=== PATIENT | female | born 1950 | race Caucasian/White ===

== ENCOUNTER → 2023-08-07 12:30 | Outpatient (REF) | payer MEDICARE, OTHER, SELFPAY ==
--- NOTE | 2023-07-07 12:58 | CM ---
Patient is scheduled for an elective R THR on 09/04/23. Spoke with patient prior to surgery via telephone. Introduced role of Orthopedic Navigator. Patient reports that she lives with her in a two story home. There are two steps (1-1) to enter
and a flight of steps to the second floor. There is a powder room on the order entry technician. She currently functions independently. She has no DME and has never had VN services. PCP is Dr. Edwin Roca.
Discussed orthopedic program and post surgical plans. Reviewed anticipated length of stay and that goal is for her to return home at discharge. Also reviewed outpatient PT. Patient is in agreement with tentative plan and will go directly to
outpatient PT. She will have support from her when she goes home.
Patient will complete online education.
Plan: Orthopedic Navigator will remain available to assist with the care of patient and will reassess discharge needs after surgery.
[2023-08-07 12:46] VITALS: BMI 33.0
[2023-08-07 13:04] LABS: Hematocrit 35.4 % (37.0-47.0); Hemoglobin 12.6 g/dL (12.0-16.0); Mean Corp Hgb Conc. 35.6 g/dL (33.0-37.0); Mean Corpuscular Hgb 32.8 pg (27.0-31.0); Mean Corpuscular Volume 92.2 fL (81.0-99.0); Mean Platelet Volume 11.6 fL (7.4-10.4); Platelet Count 216 10^3/uL (130-400); Red Blood Cell Count 3.84 10^6/uL (4.20-5.40); Red Cell Dist. Width 12.3 % (11.5-14.5); White Blood Cell Count 7.1 10^3/uL (4.8-10.8)
[2023-08-07 13:16] LABS: ALT (SGPT) 25 U/L (0-35); AST (SGOT) 33 U/L (14-36); Albumin 4.7 g/dl (3.5-5.0); Alkaline Phosphatase 91 U/L (38-126); Blood Urea Nitrogen 19 mg/dl (7-17); Calcium 9.8 mg/dl (8.4-10.2); Carbon Dioxide 25 mmol/L (22-30); Chloride 105 mmol/L (98-107); Estimated Creatinine Clearance 74 ml/min; Glucose 114 mg/dl (70-99); Potassium 3.7 mmol/L (3.5-5.1); Sodium 140 mmol/L (135-145); Total Bilirubin 0.6 mg/dl (0.2-1.3); Total Protein 7.4 g/dl (6.3-8.2); eGFR > 60.00
[2023-08-07 13:20] VITALS: BMI 33.0
[2023-08-08 08:59] LABS: Glycohemoglobin (HgbA1c) 5.8 % (4.0-5.6)
--- NOTE | 2024-04-28 12:54 | W.DCSUMMARY ---
Discharge Summary
Discharge Data
Date of Admission: 12/04/23
Date of Discharge: 12/05/23
-
Pending Results: No
Hospital Course
The patient underwent a right total knee arthroplasty with Dr. Sunny Brown 12/04/2023 without complications. The patient recovered in PACU and was transferred to the floor. The post-operative course remained uncomplicated. At the time of discharge,
the patient was noted to be tolerating a regular diet, ambulating with adherence to weight bearing and activity restrictions, able to accomplish activities of daily living at baseline level, and had pain controlled on oral medications. Prior to
discharge, the patient was provided with appropriate discharge/follow up/return instructions, and discharge medications.
Discharge Plan
-
Stand Alone Forms: Total Hip/Knee Replacement D/C
Referrals:
Physical therapy, outpatient [Other] - 09/08/23
Edwin Roca MD [Family Provider] -
Sunny Brown MD [Active] - in two weeks
Prescriptions:
No Action
amlodipine 5 MG tablet
5 mg PO HS
ibuprofen [Advil] 200 mg Tablet
200 - 400 mg PO Q6H PRN (Reason: pain)
losartan 100 mg Tablet
100 mg PO DAILY
atenolol 25 mg Tablet
25 mg PO DAILY
rosuvastatin 5 mg Tablet
5 mg PO HS
acetaminophen 325 MG tablet
650 mg PO PRN PRN (Reason: Pain)
hydrochlorothiazide 25 MG tablet
25 mg PO DAILY
Discharge Date and Time
Print Language: CITIZEN [place]
== END ==
LOC: REG 12:30
PROVIDERS: ATTENDING PHYSICIAN Orthopaedic Surgery; FAMILY PHYSICIAN Family Medicine; OTHER PHYSICIAN Physician Assistant Medical
DX: M16.11 Unilateral primary osteoarthritis, right hip (principal); Z01.818 Encounter for other preprocedural examination
CPT/HCPCS: 36415; 80053; 83036; 85027; 87070; 93005

== ENCOUNTER 2023-12-04 08:55 | Inpatient (IN) | payer MEDICARE, OTHER, SELFPAY ==
[2023-11-11 14:11] VITALS: BMI 32.5
[2023-11-11 15:01] LABS: Hematocrit 35.8 % (37.0-47.0); Hemoglobin 12.8 g/dL (12.0-16.0); Mean Corp Hgb Conc. 35.8 g/dL (33.0-37.0); Mean Corpuscular Hgb 33.2 pg (27.0-31.0); Mean Platelet Volume 12.1 fL (7.4-10.4); Platelet Count 198 10^3/uL (130-400); Red Blood Cell Count 3.85 10^6/uL (4.20-5.40); Red Cell Dist. Width 12.6 % (11.5-14.5)
[2023-11-11 15:20] LABS: ALT (SGPT) 23 U/L (0-35); AST (SGOT) 30 U/L (14-36); Albumin 4.5 g/dl (3.5-5.0); Alkaline Phosphatase 88 U/L (38-126); Blood Urea Nitrogen 21 mg/dl (7-17); Calcium 9.5 mg/dl (8.4-10.2); Carbon Dioxide 25 mmol/L (22-30); Chloride 105 mmol/L (98-107); Estimated Creatinine Clearance 58 ml/min; Glucose 97 mg/dl (70-99); Potassium 4.1 mmol/L (3.5-5.1); Sodium 139 mmol/L (135-145); Total Bilirubin 0.5 mg/dl (0.2-1.3); Total Protein 7.1 g/dl (6.3-8.2); eGFR > 60.00
[2023-11-12 10:53] LABS: Glycohemoglobin (HgbA1c) 5.7 % (4.0-5.6)
[2023-12-02 09:22] VITALS: BMI 32.5
[2023-12-04] VITALS (12 sets, daily range): BP systolic 108–149; BP diastolic 55–77; PULSE 67; O2SAT 96
[2023-12-04] MEDS: TYLENOL 650 MG PO ×3 (09:27→19:55)
[2023-12-04] MEDS: NORMOSOL-R/PLASMALYTE-A 1000 IV ×2 (09:28→13:25)
[2023-12-04] MEDS: MOBIC 15 MG PO (09:28)
[2023-12-04] MEDS: DILAUDID 0.25 MG IV ×3 (12:46→13:16)
[2023-12-04] MEDS: ROXICODONE 5 MG PO (13:05)
--- NOTE | 2023-12-04 14:20 | PTCARENOTE ---
Pt arrived to 2S in bed. Full assessment completed. R hip mepilex C/D/I. B/l LE neurovascular assessment WDL. Pt meeting acceptable pain level/ declining further pain medication at this time. IVF infusing per order. Bed locked and in the lowest
position, safety maintained. Oriented to room and call hernández.
--- NOTE | 2023-12-04 16:46 | OR.RPT ---
Operative Report
Operative Report
Orthopaedic Surgery Operative Note
DATE OF OPERATION: 12/04/2023
PREOPERATIVE DIAGNOSES: Osteoarthritis, right hip
POSTOPERATIVE DIAGNOSES: Same
OPERATION PERFORMED: Right total hip arthroplasty.
SURGEON: Sunny Brown MD
COMPLIANCE ENGINEER PRODUCTS: Bar Taylor PA-C who assisted with patient positioning and retraction
ANESTHESIA: Spinal
COMPLICATIONS: None.
ESTIMATED BLOOD LOSS: 50 mL.
DRAINS: None
SPECIMEN: None
FINDINGS: Advanced articular cartilage wear on the femoral head and acetabulum.
IMPLANTS:
Linn Trilogy Acetabular Shell, cluster hole, size 42
Linn Trilogy Highly Crosslinked PE Liner, neutral
Linn M/L Taper femoral stem, size 6 with standard neck length and standard offset
Biolox Ceramic Head, size 36mm -3.5
INDICATIONS: The patient presented to my office with debilitating right hip pain due to osteoarthritis. We reviewed the natural history of this problem, as well as the risks, benefits, and alternatives of various treatment options. The patient
exhausted all nonoperative treatment options and wished to proceed with hip replacement surgery. The patient understood the risks which included, but were not limited to, bleeding, infection, failure to relieve pain, more pain than preop, damage to
blood vessels and nerves, need for reoperation, mechanical failure of the implants, wound healing problems, stiffness, instability, blood clot, pulmonary embolism, myocardial infarction, pneumonia, arrhythmia, CVA, and . The patient accepted
these risks and wished to proceed. All questions were answered, and informed consent was obtained.
PROCEDURE IN DETAIL: The patient was identified in the preoperative holding area. The right hip was identified as the operative site. The patient was taken in the operating room and transferred to the operative table. Spinal anesthesia was
performed. IV antibiotics and tranexamic acid were administered. The patient was placed in the lateral position with Stulberg hip positioners. Axillary roll was placed. The down leg was well padded. All bony prominences were well padded. The
operative limb was prepped and draped in the usual sterile fashion.
Time out was performed. A posterolateral approach to the hip was used. The skin incision was centered over the greater trochanter. This was taken down sharply through subcutaneous tissues. Meticulous hemostasis was achieved throughout the case with
electrocautery. We split the fascia jayson in line with skin incision. I split the gluteus you bluntly. We cauterized all crossing vessels as we split it. I palpated the sciatic nerve and made sure it was well posterior in the operative field. It
was protected throughout the case.
I performed a partial bursectomy to identify the short external rotators. The gluteus medius and minimus were identified and retracted anteriorly. I incised the piriformis tendon and conjoint tendon at their insertions. These were tagged for later
repair. I then performed a trapezoidal capsulotomy. The edges were tagged for later repair. I referenced the cut edge of the capsular flap to 2 fixed points on the greater trochanter for assistance with recreation of limb length and offset. I then
dislocated the hip posteriorly. I performed a femoral neck osteotomy approximately 10 mm above the lesser trochanter, as per preoperative templating. The femoral head measured 47 mm in outer diameter. The distance between neck cut and the center of
femoral head was 35mm. I placed a curve hohmann retractor over the anterior lip of the acetabulum between the labrum and the anterior hip capsule. A second retractor was placed inferiorly just distal to the transverse acetabular ligament.
Circumferential view of the acetabulum was achieved. I incised the labrum and pulvinar with electrocautery. I started with a 47 mm reamer and reamed down to the medial wall. I then sequentially reamed up to a 51mm reamer. This gave a nice bed of
bleeding bone with excellent column support anteriorly and posteriorly. I impacted the acetabular shell in approximately 40 degrees of abduction and 20 degrees of anteversion. I matched the anteversion of the transverse acetabular ligament. I also
made sure that the anterior rim of the socket was not proud of the anterior wall to minimize the chance of iliopsoas tendinitis. I confirmed the cup was well-seated. I then impacted a neutral liner and confirmed it was well seated with the locking
mechanism.
On the femoral side, I use a box osteotome to open the proximal starting point. I found the canal with a Charnley awl and a lateralizing reamer. I then used the Linn M/L taper broaches sequentially to prepare the femoral canal. The size 6 came to
a stop at the desired level and had excellent axial and rotational stability. We trialed with a trial ball head. The hip was taken through a complete range of motion. It was noted to be stable in extension without impingement. It was stable in the
position of sleep and in flexion with internal rotation. The limb length and offset were checked compared to the capsular flap and was appropriate. The measured length between the neck cut and center of the trial femoral head was 37.5mm.
I removed the trials. I impacted the femoral implant to match the white earth version. It had excellent axial and rotational stability. Trial ball head was placed, and I reduced the hip and took the hip through range of motion. There was no impingement
in external rotation and extension. Position of sleep was stable. At 90 degrees of flexion and slight adduction, the hip could be internally rotated to 90 degrees with no subluxation. I palpated the sciatic nerve, which was tension free and
unharmed. Based on our capsular flap measurement, we had restored the offset and leg length. The trial ball head was removed, and the final ball head was impacted onto a clean and dry [place] taper. The hip was reduced.
A dilute betadine soak was performed for approximately 3 minutes, and then the hip was copiously irrigated. I repaired the capsule, piraformis, and conjoint tendon with #2 Ethibond to drill holes in the greater trochanter. Local anesthetic was
injected. The fascia jayson was closed with #1 PDS in running fashion. The subcutaneous tissues were closed with 2-0 PDS in running fashion. The skin was reapproximated with 3-0 Monocryl subcuticular suture. I placed a Prineo dressing followed by a
Mepilex Ag dressing. The patient awoke from anesthesia without difficulty. Sponge and instrument counts were correct x2 at the end of the case.
I was present and participated in the entire procedure. The patient was sent to the recovery room in stable condition.
Roberth Brown MD
[2023-12-04] MEDS: ANCEF 5 IV (17:13)
[2023-12-04] MEDS: ASPIRIN 325 MG PO (17:15)
[2023-12-04] MEDS: SENOKOT 17.2 MG PO (19:54)
[2023-12-04] MEDS: COLACE 100 MG PO (19:54)
[2023-12-04] MEDS: TORADOL 15 MG IV (19:55)
[2023-12-04] MEDS: BACTROBAN 2% OINTMENT 1 APPLIC NASAL (19:55)
[2023-12-04] MEDS: NEURONTIN 300 MG PO (22:08)
[2023-12-04] MEDS: CRESTOR 5 MG PO (22:08)
[2023-12-05] MEDS: TYLENOL 650 MG PO ×3 (00:12→10:01)
[2023-12-05] MEDS: ANCEF 5 IV (02:48)
[2023-12-05 03:00] VITALS: BP 117/60
[2023-12-05 07:35] VITALS: BP 130/55
--- NOTE | 2023-12-05 08:24 | W.DCSUMMARY ---
Discharge Summary
Discharge Data
Date of Admission: 12/04/23
Date of Discharge: 12/05/23
-
Pending Results: No
Discharge Plan
-
Patient Disposition: Home (Routine Discharge)
Discharge Diagnosis/Procedures: Right total hip arthroplasty with Dr. Brown
Condition: Good
Diet: No restrictions
Activity: As tolerated and With Walker
Driving Restrictions: Not until seen by your Dr
Bathing Restrictions: OK to Shower
Stand Alone Forms: Total Hip/Knee Replacement D/C
Referrals:
Edwin Roca MD [Family Provider] -
Sunny Brown MD [Active] - (Please call the office to confirm your first postoperative follow-up 2 weeks from date of surgery)
Additional Discharge Medication Instructions: Please continue with your postoperative medications as discussed at the preoperative history and physical
Prescriptions:
Continued
amlodipine 5 MG tablet
5 mg PO HS
ibuprofen [Advil] 200 mg Tablet
200 - 400 mg PO Q6H PRN (Reason: pain)
losartan 100 mg Tablet
100 mg PO DAILY
atenolol 25 mg Tablet
25 mg PO DAILY
rosuvastatin 5 mg Tablet
5 mg PO HS
acetaminophen 325 MG tablet
650 mg PO PRN PRN (Reason: Pain)
hydrochlorothiazide 25 MG tablet
25 mg PO DAILY
Discontinued
mupirocin 2 % ointment
1 applic topical BID Qty: 1 0RF
Patient Comments:
patient started applying to b/l nares bid on 11/29/23. Patient applied this am 12/04/23
Discharge Orders:
Discharge Patient (As Directed); Ordered 12/05/23
Ordered By: Juan Francisco Allen
Discharge Date and Time
Print Language: [place]
[2023-12-05 08:45] VITALS: BP 135/55; PULSE 73; O2SAT 98
[2023-12-05] MEDS: TORADOL 15 MG IV (09:58)
[2023-12-05] MEDS: SENOKOT 17.2 MG PO (10:01)
[2023-12-05] MEDS: MOBIC 15 MG PO (10:01)
[2023-12-05] MEDS: TENORMIN 25 MG PO (10:01)
[2023-12-05] MEDS: ASPIRIN 325 MG PO (10:01)
[2023-12-05] MEDS: COLACE 100 MG PO (10:01)
[2023-12-05] MEDS: BACTROBAN 2% OINTMENT 1 APPLIC NASAL (10:02)
--- NOTE | 2023-12-05 10:28 | CM ---
CM following re: discharge planning.
Reviewed pt's chart, met with pt.
Pt is a 73 year old female, admitted with primary dx of POD#1 s/p Right total hip arthroplasty.
Pt reports she lives with and a dog in a 2SH, 2 steps to enter, has supportive son. Pt reports she ambulates with a walker and a cane. No VN or SNF history.
PT and OT evaluations noted - outpatient PT/OT recommended.
Discharge order noted . Pt is aware, expressed her agreement with discharge and pt stated she is all set up with outpatient therapy and her is coming to transport home. IMM reviewed, placed on chart, pt aaron a copy.
PCP: Edwin Roca
Pharmacy: [facility]
D/C plan: home today with outpatient therapy. to transport
[2023-12-05 10:58] VITALS: BP 125/58; PULSE 67
[2023-12-05] MEDS: TYLENOL PO (12:00)
== END 2023-12-05 13:22 | disposition home or self-care (01) | DRG 470 ==
LOC: 2 SOUTH 08:55
PROVIDERS: ADMITTING PHYSICIAN Orthopaedic Surgery; FAMILY PHYSICIAN Family Medicine
PROC: 0SR903A Replacement of Right Hip Joint with Ceramic Synthetic Substitute, Uncemented, Open Approach (ICD-10-PCS; 2023-12-04)
DX: M16.11 Unilateral primary osteoarthritis, right hip (principal)
CPT/HCPCS: 36415; 73502; 80053; 83036; 85027; 87070; 97116; 97162; 97166; 97530; 97535; C1776